=== PATIENT | male | born 1990 | race Caucasian/White ===

== ENCOUNTER 2018-09-13 18:36 | Emergency (ER) | payer BC ==
[2018-09-13 19:04] VITALS: BP 131/90
[2018-09-13] MEDS ORDERED: Gelfoam 12-7 ADSORBABL SPONGE* 1 EA SPONGE TOPICAL ONE (19:40)
--- NOTE | 2018-09-13 19:48 | UC ---
Laceration HPI - HPI Summary HPI Summary: He took a chunk out of the tip of his left fourth finger using a razor scraper about 1430 today. He can't seem to get it to stop bleeding. - History Of Current Complaint Chief Complaint: UCLaceration Stated Complaint: FINGER LACERATION Time Seen by Provider: 09/13/18 19:34 Hx Obtained From: Patient Laceration Location: Finger Mechanism Of Injury: Sharp Trauma Onset/Duration: Sudden Onset, Lasting Hours Severity: Mild Pain Intensity: 0 Aggravating Factors: Nothing - Allergies/Home Medications Allergies/Adverse Reactions: Allergies Allergy/AdvReac Type Severity Reaction Status Date / Time cefaclor [From Ceclor] Allergy Unknown Verified 09/13/18 19:06 Reaction Details PMH/Surg Hx/FS Hx/Imm Hx Previously Healthy: Yes - Surgical History Surgical History: None - Family History Known Family History: Positive: Unknown - Social History Alcohol Use: Weekly Substance Use Type: None Smoking Status (MU): Never Smoked Tobacco Review of Systems All Other Systems Reviewed And Are Negative: Yes Physical Exam - Summary Physical Exam Summary: His vitals are stable. He has a bandage on his fingertip. Underneath is a 5 mm x 1.5 mm avulsion Triage Information Reviewed: Yes Vital Signs: Initial Vital Signs Temp 98.2 F 09/13/18 19:01 Pulse 70 09/13/18 19:01 Resp 16 09/13/18 19:01 BP 131/90 09/13/18 19:01 Pulse Ox 100 09/13/18 19:01 Vital Signs Reviewed: Yes Skin Exam: Other - There is a small gouge out of the tip of his fourth finger that I can see after he took the bandage off. It slowly begins to lose but the bandage was dry and sticking to it. Laceration Course/Dx - Course/Dx Course Of Treatment: I can't really suture this or I'll bunch up his fingertip. We put some Gelfoam and a bandage on for hemostasis. - Diagnosis Provider Diagnosis: Laceration Discharge - Sign-Out/Discharge Documenting (check all that apply): Patient Departure All imaging exams completed and their final reports reviewed: No Studies - Discharge Plan Condition: Stable Disposition: HOME Patient Education Materials: Skin Avulsion (ED) Referrals: No Primary Care Phys,NOPCP [Primary Care Provider] - - Billing Disposition and Condition Condition: STABLE Disposition: Home
== END 2018-09-13 20:10 | disposition home or self-care (01) ==
LOC: UCEAST 18:36
DX: S61.215A Laceration without foreign body of left ring finger without damage to nail, initial encounter (principal); W26.9XXA Contact with unspecified sharp object(s), initial encounter; Y92.9 Unspecified place or not applicable
CPT/HCPCS: 99201; A9270-GY; G0463